=== PATIENT | male | born 1955 | race Caucasian/White ===

== ENCOUNTER 2022-01-28 08:54 | Inpatient (IN) ==
[2022-01-28] MEDS ORDERED: ALBUTEROL 0.083% NEBU SOLN 3 ML VIAL NEB STA ×2 (09:15→11:16)
[2022-01-28] MEDS ORDERED: ALBUT/IPRATROP 3MG/0.5MG NEB 3 ML VIAL NEB ONE (09:15)
[2022-01-28] MEDS ORDERED: methylPREDNISolone 125 MG/2 ML VIAL IV STA (09:15)
--- NOTE | 2022-01-28 09:19 | Emergency Department Note ---
Impression & Plan COPD (chronic obstructive pulmonary disease), Breath shortness ED Provider Note NAME: FRANKY DORSEY AGE: 66 SEX: M : 1955 ARRIVES VIA: Walk-In INFORMANT: Patient ED PROVIDER(S): Nagi Kelly DO CHIEF COMPLAINT: Shortness of breath HPI: Patient is a 66-year-old male with a past medical history of COPD, GERD, dyslipidemia that presents to the ER for shortness of breath which has been worsening for the past 3 weeks. He notes that recently over the past week it has significantly worsened. He does have a cough. He notes he is very rarely bringing up any sputum and if he does he has red flecks in it. Denies any blood thinners. No chest pain. No belly pain. No nausea, vomiting, or diarrhea. No dysuria, urgency, or frequency. No other exacerbating or remitting factors. He notes he can no longer walk as he is so short of breath. On Wednesday he started steroids as well as antibiotics with no improvement. ROS: See above HPI for pertinent positives & negatives. A total of 10 systems reviewed and were otherwise negative. PAST MEDICAL HISTORY:See Below PAST SURGICAL HISTORY:See Below FAMILY HISTORY:See Below SOCIAL HISTORY:See Below HOME MEDICATIONS:See Below ALLERGIES:See Below VITALS:See Below PHYSICAL EXAMINATION: GENERAL: Sitting up in bed, alert, mild distress, dyspneic with conversation EYE EXAM: normal conjunctiva. OROPHARYNX: mucous membranes are moist LUNGS: Diffuse wheezing bilateral. Normal chest wall mechanics HEART: no murmurs, S1 normal and S2 normal ABDOMEN: abdomen soft, non-tender, normo-active bowel sounds, no masses, no rebound or guarding. BACK: Back is symmetrical on inspection and there is no deformity, no midline tenderness, no CVA tenderness. SKIN: no rashes and no bruising UPPER EXTREMITIES: upper extremities are grossly normal. LOWER EXTREMITIES: No pitting edema. Calves are equal bilateral NEURO EXAM: Normal sensorium, cranial nerves II-XII grossly intact, normal speech, no gross weakness of arms, no gross weakness of legs. MEDICAL DECISION MAKING: Patient is a 66-year-old male with past medical history of COPD that presents to the ER for shortness of breath. IV was established blood work was obtained. Labs show no significant leukocytosis or anemia. ABG with a pH 7.42. BMP along with LFTs, bilirubin, and lipase was unremarkable. Troponin was negative. COVID, influenza, and RSV were negative. Chest x-ray without any focal infiltrate. EKG was nondiagnostic. Patient was given hour-long neb treatment and was still dyspneic with conversation but was moving more air and feeling slightly better. He was given additional neb treatment. He was already given steroids and he has been on antibiotics. Discussed with hospitalist for further evaluation. Triage Nursing notes reviewed. Limited review of prior medical records performed Vital Signs: reviewed and remarkable for HTN Differential diagnosis: Differential diagnoses includes but is not limited to pneumonia, bronchitis, COPD/Asthma exacerbation, pneumothorax, pulmonary embolism, congestive heart failure, acute coronary syndrome ER treatment provided: See below Diagnostics interpreted by me: ECG: Atrial paced rate of 68 Normal axis No PVCs QTC 414 Cardiac Monitoring: An order was placed for continuous cardiac monitoring. The monitor shows a rate of 70 with sinus rhythm. Laboratory studies: As stated above and show below. Imaging studies: Portable AP upright 1 view of the chest shows no focal x-ray pneumothorax Consultation(s): Discussed with hospitalist for further evaluation Procedures: none Critical Care: None Past Med/Surg History Medical History Asthma CAD (coronary artery disease) Chronic rhinitis Diverticulosis of colon Dyslipidemia GERD (gastroesophageal reflux disease) Gout HTN (hypertension) Hypersensitivity pneumonitis Myocardial infarction Obstructive sleep apnea Presence of permanent cardiac pacemaker Pulmonary nodules SSS (sick sinus syndrome) Surgical History H/O colonoscopy H/O elbow surgery H/O heart artery stent H/O knee surgery S/P vasectomy Status post cardiac pacemaker procedure Family History Father Lung cancer Diabetes Mother Rheumatoid arthritis Diabetes Social History Smoking Status: Never smoker Hx Alcohol Use: No Hx Substance Use: No Preferred Language: Martiniquais Communication Ability: Effective Yarn Spooler Required: No Beliefs That Will Affect Care: None marital status: Current Living Situation: Spouse Current Living Situation Comment: at home with . current occupational status: retired and disabled Other Information That Helps Us Care for You: No Feels Safe at Home: Yes Safety Concerns: Feels Safe At This Time Assistive Devices: None Allergies Allergies Allergy/AdvReac Type Severity Reaction Status Date / Time Sulfa (Sulfonamide Allergy Unknown Hives Verified 08/23/21 10:17 Antibiotics) bee venom protein (honey bee) Allergy Nausea Verified 08/23/21 10:17 Home Meds Home Medications Medication Instructions Recorded Confirmed allopurinol 300 mg tablet 300 mg PO DAILY 03/17/18 01/28/22 aspirin 81 mg tablet,delayed 81 mg PO DAILY 03/17/18 01/28/22 release atorvastatin 80 mg tablet 80 mg PO HS 03/17/18 01/28/22 cyanocobalamin (vitamin B-12) 1,000 mcg PO DAILY 03/17/18 01/28/22 1,000 mcg tablet (Vitamin B-12) epinephrine 0.3 mg/0.3 mL 0.3 mg IM DIRECTED PRN unknown 03/17/18 01/28/22 injection, auto-injector lisinopril 5 mg tablet 5 mg PO DAILY 03/17/18 01/28/22 nitroglycerin 0.4 mg sublingual 0.4 mg sublingual DIRECTED PRN 03/17/18 01/28/22 tablet (Nitrostat) Chest Pain ezetimibe 10 mg tablet (Zetia) 10 mg PO DAILY 03/20/20 01/28/22 famotidine 20 mg tablet 20 mg HS 03/20/20 01/28/22 ipratropium bromide 17 2 puff inhalation .BID PRN 07/28/21 01/28/22 mcg/actuation HFA aerosol inhaler Shortness Of Breath (Atrovent HFA) loratadine 10 mg tablet 10 mg PO DAILY 01/28/22 01/28/22 pantoprazole 20 mg tablet,delayed 20 mg PO DAILY 01/28/22 01/28/22 release prednisone 10 mg tablet 10 mg PO UD PRN rescue kit 01/28/22 01/28/22 Previous Rx's Medication Instructions Recorded albuterol sulfate 1.25 mg/3 mL 1.25 mg (3 mL) inhalation QID PRN 05/01/21 solution for nebulization shortness of breath or wheezing #90 mL albuterol sulfate 90 mcg/actuation 2 puff inhalation .COMPLEX PRN 05/01/21 aerosol inhaler (Ventolin HFA) Shortness Of Breath #8.5 grams fluticasone 250 mcg-salmeterol 50 1 inh inhalation BID #3 Inhalers 07/28/21 mcg/dose blistr powdr for inhalation (Advair Diskus) cefuroxime axetil 500 mg tablet 500 mg PO BID PRN Shortness Of 01/22/22 Breath #20 tabs Results & Data (ED) Vital Signs Vital Signs - 24 hr 01/28/22 09:06 01/28/22 09:30 01/28/22 09:35 Temperature 36.3 C L Temperature Source Temporal Artery Scan Pulse Rate 80 Pulse Rate [Apical] 67 Pulse Rate from SpO2 Sensor Pulse Rhythm Regular Pulse Strength Normal Respiratory Rate 20 18 Respiratory Effort / Characteristics Non-Labored Spontaneous Non-Labored Spontaneous Respiratory Depth Normal Respiratory Pattern Regular Blood Pressure 149/83 H Blood Pressure Mean 105 Blood Pressure Position Sitting Pulse Oximetry 93 94 Oxygen Delivery Method Room Air Room Air Room Air Sepsis Recent Fever Within 48 Hours No Sepsis New/Unexplained Change in Mental Status No Sepsis Action Taken by Nursing No Action Required 01/28/22 09:29 01/28/22 09:30 01/28/22 09:31 Temperature Temperature Source Pulse Rate 67 70 66 Pulse Rate [Apical] Pulse Rate from SpO2 Sensor 66 69 67 Pulse Rhythm Pulse Strength Respiratory Rate 18 20 17 Respiratory Effort / Characteristics Respiratory Depth Respiratory Pattern Blood Pressure Blood Pressure Mean Blood Pressure Position Pulse Oximetry 95 95 94 Oxygen Delivery Method Sepsis Recent Fever Within 48 Hours Sepsis New/Unexplained Change in Mental Status Sepsis Action Taken by Nursing 01/28/22 09:31 01/28/22 10:00 01/28/22 10:00 Temperature Temperature Source Pulse Rate 65 Pulse Rate [Apical] Pulse Rate from SpO2 Sensor 66 Pulse Rhythm Pulse Strength Respiratory Rate Respiratory Effort / Characteristics Respiratory Depth Respiratory Pattern Blood Pressure 159/90 H 134/78 Blood Pressure Mean 113 96 Blood Pressure Position Pulse Oximetry 99 Oxygen Delivery Method Sepsis Recent Fever Within 48 Hours Sepsis New/Unexplained Change in Mental Status Sepsis Action Taken by Nursing 01/28/22 10:30 01/28/22 10:30 01/28/22 11:31 Temperature Temperature Source Pulse Rate 68 Pulse Rate [Apical] 65 Pulse Rate from SpO2 Sensor 68 Pulse Rhythm Pulse Strength Respiratory Rate 15 20 Respiratory Effort / Characteristics Respiratory Depth Respiratory Pattern Blood Pressure 148/75 H Blood Pressure Mean 99 Blood Pressure Position Pulse Oximetry 100 92 Oxygen Delivery Method Room Air Sepsis Recent Fever Within 48 Hours Sepsis New/Unexplained Change in Mental Status Sepsis Action Taken by Nursing 01/28/22 11:00 01/28/22 11:30 Temperature Temperature Source Pulse Rate 65 67 Pulse Rate [Apical] Pulse Rate from SpO2 Sensor 67 65 Pulse Rhythm Pulse Strength Respiratory Rate 16 19 Respiratory Effort / Characteristics Respiratory Depth Respiratory Pattern Blood Pressure 148/74 H 122/76 Blood Pressure Mean 98 91 Blood Pressure Position Pulse Oximetry 94 93 Oxygen Delivery Method Room Air Room Air Sepsis Recent Fever Within 48 Hours Sepsis New/Unexplained Change in Mental Status Sepsis Action Taken by Nursing Laboratory Data Result diagrams: 01/28/22 09:25 01/28/22 09:25 Lab Results 01/28/22 01/28/22 01/28/22 Range/Units 09:25 09:25 09:25 WBC 8.69 (4.8-10.8) K/ul RBC 4.39 L (4.63-6.08) M/uL Hgb 14.1 (14.0-18.0) g/dl Hct 41.4 (40.1-51.0) % MCV 94.3 (80.0-100.0) fL MCH 32.1 (25.0-34.0) pg MCHC 34.1 (32.0-36.0) g/dL RDW Std Deviation 47.5 H (36.4-46.3) fL RDW Coeff of Bette 13.9 (11.5-14.5) % Plt Count 133 (130-400) K/uL MPV 10.2 (9.4-12.4) fL Immature Gran % (Auto) 0.3 % Neut % (Auto) 60.6 % Lymph % (Auto) 22.1 % [place] % (Auto) 5.6 % Eos % (Auto) 9.9 % Baso % (Auto) 1.5 % Neut # (Auto) 5.26 (1.4-6.5) K/uL Lymph # (Auto) 1.92 (1.2-3.4) K/uL [place] # (Auto) 0.49 (0.24-0.82) K/uL Eos # (Auto) 0.86 H (0-0.50) K/uL Baso # (Auto) 0.13 (0-0.2) K/uL Immature Gran # (Auto) 0.03 H (0.00-0.02) K/uL D-Dimer 200 (0-500) ug/L FEU VBG pH (7.36-7.41) VBG pCO2 (38-50) mmHg VBG pO2 mmHg VBG HCO3 mmol/L VBG O2 Saturation % VBG Base Excess mEq/L Sodium 140 (136-145) mmol/L Potassium 4.0 (3.5-5.1) mmol/L Chloride 106 (98-107) mmol/L Carbon Dioxide 26 (21-32) mmol/L Anion Gap 8 (3-11) BUN 11 (6-23) mg/dl Creatinine 0.92 (0.6-1.4) mg/dl Est Cr Clr Drug Dosing 99.9 ml/min Est GFR ( Amer) 100.1 ml/min Est GFR (Non-Af Amer) 86.4 ml/min BUN/Creatinine Ratio 12.0 (10-20) Glucose 135 H (70-99(Fasting)) mg/dl Calcium 8.9 (8.5-10.1) mg/dl Total Bilirubin 0.7 (0.2-1.0) mg/dl AST 21 (13-39) U/L ALT 23 (7-52) U/L Alkaline Phosphatase 99 (34-104) U/L Troponin I High Sens 4.0 (0-20) pg/ml Total Protein 6.8 (6.0-8.3) gm/dl Albumin 4.0 (3.4-5.0) gm/dl Globulin 2.8 (2.5-4.0) gm/dl Albumin/Globulin Ratio 1.4 (0.9-2) Lipase 19 (11-82) U/L SARS-CoV-2 (PCR) (Negative) Influenza Type A (PCR) (Neg) Influenza Type B (PCR) (Neg) RSV (RT-PCR) (Neg) 01/28/22 01/28/22 Range/Units 09:25 09:30 WBC (4.8-10.8) K/ul RBC (4.63-6.08) M/uL Hgb (14.0-18.0) g/dl Hct (40.1-51.0) % MCV (80.0-100.0) fL MCH (25.0-34.0) pg MCHC (32.0-36.0) g/dL RDW Std Deviation (36.4-46.3) fL RDW Coeff of Bette (11.5-14.5) % Plt Count (130-400) K/uL MPV (9.4-12.4) fL Immature Gran % (Auto) % Neut % (Auto) % Lymph % (Auto) % [place] % (Auto) % Eos % (Auto) % Baso % (Auto) % Neut # (Auto) (1.4-6.5) K/uL Lymph # (Auto) (1.2-3.4) K/uL [place] # (Auto) (0.24-0.82) K/uL Eos # (Auto) (0-0.50) K/uL Baso # (Auto) (0-0.2) K/uL Immature Gran # (Auto) (0.00-0.02) K/uL D-Dimer (0-500) ug/L FEU VBG pH 7.42 H (7.36-7.41) VBG pCO2 41 (38-50) mmHg VBG pO2 65 mmHg VBG HCO3 27 mmol/L VBG O2 Saturation 94.1 % VBG Base Excess 1.9 mEq/L Sodium (136-145) mmol/L Potassium (3.5-5.1) mmol/L Chloride (98-107) mmol/L Carbon Dioxide (21-32) mmol/L Anion Gap (3-11) BUN (6-23) mg/dl Creatinine (0.6-1.4) mg/dl Est Cr Clr Drug Dosing ml/min Est GFR ( Amer) ml/min Est GFR (Non-Af Amer) ml/min BUN/Creatinine Ratio (10-20) Glucose (70-99(Fasting)) mg/dl Calcium (8.5-10.1) mg/dl Total Bilirubin (0.2-1.0) mg/dl AST (13-39) U/L ALT (7-52) U/L Alkaline Phosphatase (34-104) U/L Troponin I High Sens (0-20) pg/ml Total Protein (6.0-8.3) gm/dl Albumin (3.4-5.0) gm/dl Globulin (2.5-4.0) gm/dl Albumin/Globulin Ratio (0.9-2) Lipase (11-82) U/L SARS-CoV-2 (PCR) NEGATIVE (Negative) Influenza Type A (PCR) Negative (Neg) Influenza Type B (PCR) Negative (Neg) RSV (RT-PCR) Negative (Neg) Administered Medications Discontinued Medications Albuterol (Albut/Ipratrop 3mg/0.5mg Neb 3 Ml Vial) 12 ml NEB ONE ONE; Protocol Stop: 01/28/22 09:16 Last Admin: 01/28/22 09:35 Dose: 12 ml Documented By: DILAN Albuterol (Albuterol 0.083% Nebu Soln 3 Ml Vial) 2.5 mg NEB NOW STA; Protocol Stop: 01/28/22 09:16 Last Admin: 01/28/22 14:46 Dose: Not Given Documented By: DILAN Albuterol (Albuterol 0.083% Nebu Soln 3 Ml Vial) 10 mg NEB NOW STA; Protocol Stop: 01/28/22 11:17 Last Admin: 01/28/22 11:30 Dose: 10 mg Documented By: DILAN Doxycycline Hyclate (Doxycycline Hyclate 100 Mg Cap) 100 mg PO NOW STA Stop: 01/28/22 12:13 Last Admin: 01/28/22 12:45 Dose: 100 mg Documented By: SONDRA Methylprednisolone (Methylprednisolone 125 Mg/2 Ml Vial) 60 mg IV NOW STA Stop: 01/28/22 09:16 Last Admin: 01/28/22 09:28 Dose: 60 mg Documented By: SONDRA Imaging Data Radiologist's Impression: Chest X-Ray 01/28/22 09:15 XR chest 1V portable HISTORY: Atypical Chest Pain COMPARISON: Chest 03/20/2020. FINDINGS: No pneumothorax. No pleural effusions. The cardiac silhouette remains mildly enlarged. There is left-sided dual-chamber pacemaker. There is mild central pulmonary vascular congestion without overt edema. No new focal lung consolidations identified to suggest pneumonia. IMPRESSION: Mild cardiomegaly with mild central pulmonary vascular congestion without overt edema. ACT 112: Negative or not required by law. Electronically signed by: Franky Rodgers M.D. 01/28/2022 9:29 AM Discharge Plan Visit Data Chief Complaint: Illness Stated Complaint: COUGHING, WEEZING, CANT BREATHE ED Provider: Nagi Kelly Discharge Problem: COPD (chronic obstructive pulmonary disease), Breath shortness Patient Disposition: Admitted As Inpatient Discharge Instructions Interventions: ED Discharge Assessment Last Done: 01/28/22 13:40
--- NOTE | 2022-01-28 09:30 | XRay Report ---
XR chest 1V portable HISTORY: Atypical Chest Pain COMPARISON: Chest 03/20/2020. FINDINGS: No pneumothorax. No pleural effusions. The cardiac silhouette remains mildly enlarged. Ther e is left-sided dual-chamber pacemaker. There is mild central pulmonary vascular congestion without o vert edema. No new focal lung consolidations identified to suggest pneumonia. IMPRESSION: Mild cardiomegaly with mild central pulmonary vascular congestion without overt edema. ACT 112: Negative or not required by law. Electronically signed by: Franky Rodgers M.D. 01/28/2022 9:29 AM
[2022-01-28 09:44] LABS: Base Excess VBG 1.9 mEq/L; HCO3 VBG 27 mmol/L; Oxygen Saturation VBG 94.1 %; PCO2 VBG 41 mmHg (38-50); PO2 VBG 65 mmHg; pH VBG 7.42 (7.36-7.41)
[2022-01-28 09:52] LABS: Hematocrit (blood only) 41.4 % (40.1-51.0); Hemoglobin 14.1 g/dl (14.0-18.0); Mean Corpuscular Hemoglobin 32.1 pg (25.0-34.0); Mean Corpuscular Hgb Conc 34.1 g/dL (32.0-36.0); Mean Corpuscular Volume 94.3 fL (80.0-100.0); Mean Platelet Volume 10.2 fL (9.4-12.4); Platelet Count 133 K/uL (130-400); RDW Coefficient of Variation 13.9 % (11.5-14.5); RDW Standard Deviation 47.5 fL (36.4-46.3); Red Blood Count 4.39 M/uL (4.63-6.08); White Blood Count 8.69 K/ul (4.8-10.8)
[2022-01-28 10:02] LABS: Basophils # (auto) 0.13 K/uL (0-0.2); Basophils % (auto) 1.5 %; Eosinophils # (auto) 0.86 K/uL (0-0.50); Eosinophils % (auto) 9.9 %; Immature Granulocytes # (auto) 0.03 K/uL (0.00-0.02); Immature Granulocytes % (auto) 0.3 %; Lymphocytes # (auto) 1.92 K/uL (1.2-3.4); Lymphocytes % (auto) 22.1 %; Monocytes # (auto) 0.49 K/uL (0.24-0.82); Monocytes % (auto) 5.6 %; Neutrophils # (auto) 5.26 K/uL (1.4-6.5); Neutrophils % (auto) 60.6 %
[2022-01-28 10:18] LABS: Albumin Globulin Ratio 1.4 (0.9-2); Bilirubin,Total 0.7 mg/dl (0.2-1.0); Calcium 8.9 mg/dl (8.5-10.1); Creatinine Clr Calc Pharmacy 99.9 ml/min; Est GFR (African American) 100.1 ml/min; Est GFR (Non-African American) 86.4 ml/min; Globulin 2.8 gm/dl (2.5-4.0); Total Protein 6.8 gm/dl (6.0-8.3)
[2022-01-28 10:19] LABS: D Dimer 200 ug/L FEU (0-500)
[2022-01-28 10:48] LABS: Influenza A virus by PCR Negative (Neg); Influenza B virus by PCR Negative (Neg); RSV by PCR Negative (Neg); SARS CoV2 RNA(COVID-19) InHosp NEGATIVE (Negative)
--- NOTE | 2022-01-28 11:40 | History & Physical Report ---
Date of Service January 28, 2022 Assessment & Plan (1) Asthma with acute exacerbation: (2) Hypersensitivity pneumonitis: (3) CAD (coronary artery disease): (4) HTN (hypertension): (5) Morbid obesity: (6) Presence of permanent cardiac pacemaker: (7) Obstructive sleep apnea: (8) Restrictive lung disease: Plan This is a 66-year-old male who has a significant past medical history of CAD with history of anterior [place] and LAD stent placement in 2018, SSS status post PPM, HTN, HLD, hypersensitivity pneumonitis, chronic cough, moderate asthma, restrictive lung disease in the setting of morbid obesity and PRECIOUS, gout and chronic rhinitis who presents to ED secondary to shortness of breath /cough x3 weeks. Moderate persistent asthma with Asthma Exacerbation Hypersensitivity Pneumonitis Restrictive lung disease Admit to telemetry aggressive pulmonary toilet with Duonebs, flutter valve, incentive spirometry IV solumedrol 40mg BID, titrate down as able Doxycycline 100g BID muccinex, Delsym Pt follows Dr. Flores, allergy/immunology, previously followed [facility] but last seen 2013 will hold oral lisinopril for now, in favor of low dose losartan given chronic cough supplemental O2 as needed, currently on room air CAD SSS s/p PPM HTN continue asa, statin, zetia will hold oral lisinopril for now, in favor of low dose losartan given chronic cough PRECIOUS not on CPAP Morbid obesity, BMI 38.2 encourage lifestyle modifications DVT ppx: SQ Lovenox Dispo: tele under obs, d/c to home when medically able FULL CODE PCP: [facility]forward Pt was seen and examined in collaboration with Dr. Hanson, please see addendum History of Present Illness Chief Complaint: Cough and SOB x3 weeks. Primary Care Provider: Renetta Morales, This is a 66-year-old male who has a significant past medical history of CAD with history of anterior [place] and LAD stent placement in 2018, SSS status post PPM, HTN, HLD, hypersensitivity pneumonitis, chronic cough, moderate asthma, restrictive lung disease in the setting of morbid obesity and PRECIOUS, gout and chronic rhinitis who presents to ED secondary to shortness of breath /cough x3 weeks. He states approx 3 weeks ago he developed a cough. The cough has been persistently getting worse as well as SOB. He has been using his home nebulizer w/o relief. He also started a rescue kit approx 1 week ago with cefuroxime and prednisone. He believes this flare may be due to pollen and heat. He states many yrs ago he was dx with hypersensitivity pneumonitis due to pigeon droppings in work place. He was dx by allergy/immunology Dr. Flores. He feels like his oral steroids/antibiotic are not helping. His cough is dry. Occasionally coughs up red mucus. He has tried hot showers w/o relief. He complains of sweats at night but no documented fevers. He denies chills, dizziness, lightheaded, chest pain, n/v/d, change in bowel or urinary habits. His sx feel worse in the morning. Also if he is resting he feels okay, but as soon as he starts moving around he feels SOB. SOB most with exertion. No known sick contacts. Of significance patient remained hemodynamically stable in ED. He was not hypoxic but oxygen saturations were in the low 90s at approximately 92%. His CBC and CMP was generally unremarkable. D-dimer was negative and VBG with mild elevation in pH at 7.42. His SARS-CoV-2 and influenza panel was negative. Chest x-ray revealed mild cardiomegaly without overt edema. Mild central pulmonary vascular congestion noted. He denies smoking and only uses occasional alcohol. Allergies Allergy/AdvReac Type Severity Reaction Status Date / Time Sulfa (Sulfonamide Allergy Unknown Hives Verified 08/23/21 10:17 Antibiotics) bee venom protein (honey bee) Allergy Nausea Verified 08/23/21 10:17 Home Medications Medication Instructions Recorded Confirmed Type allopurinol 300 mg tablet 300 mg PO DAILY 03/17/18 01/28/22 History aspirin 81 mg tablet,delayed 81 mg PO DAILY 03/17/18 01/28/22 History release atorvastatin 80 mg tablet 80 mg PO HS 03/17/18 01/28/22 History cyanocobalamin (vitamin B-12) 1,000 mcg PO DAILY 03/17/18 01/28/22 History 1,000 mcg tablet (Vitamin B-12) epinephrine 0.3 mg/0.3 mL 0.3 mg IM DIRECTED PRN unknown 03/17/18 01/28/22 History injection, auto-injector lisinopril 5 mg tablet 5 mg PO DAILY 03/17/18 01/28/22 History nitroglycerin 0.4 mg sublingual 0.4 mg sublingual DIRECTED PRN 03/17/18 01/28/22 History tablet (Nitrostat) Chest Pain ezetimibe 10 mg tablet (Zetia) 10 mg PO DAILY 03/20/20 01/28/22 History famotidine 20 mg tablet 20 mg HS 03/20/20 01/28/22 History albuterol sulfate 1.25 mg/3 mL 1.25 mg (3 mL) inhalation QID PRN 05/01/21 01/28/22 Rx solution for nebulization shortness of breath or wheezing #90 mL albuterol sulfate 90 mcg/actuation 2 puff inhalation .COMPLEX PRN 05/01/21 01/28/22 Rx aerosol inhaler (Ventolin HFA) Shortness Of Breath #8.5 grams fluticasone 250 mcg-salmeterol 50 1 inh inhalation BID #3 Inhalers 07/28/21 01/28/22 Rx mcg/dose blistr powdr for inhalation (Advair Diskus) ipratropium bromide 17 2 puff inhalation .BID PRN 07/28/21 01/28/22 History mcg/actuation HFA aerosol inhaler Shortness Of Breath (Atrovent HFA) cefuroxime axetil 500 mg tablet 500 mg PO BID PRN Shortness Of 01/22/22 01/28/22 Rx Breath #20 tabs loratadine 10 mg tablet 10 mg PO DAILY 01/28/22 01/28/22 History pantoprazole 20 mg tablet,delayed 20 mg PO DAILY 01/28/22 01/28/22 History release prednisone 10 mg tablet 10 mg PO UD PRN rescue kit 01/28/22 01/28/22 History Past Med/Surg History Medical History Asthma CAD (coronary artery disease) Chronic rhinitis Diverticulosis of colon Dyslipidemia GERD (gastroesophageal reflux disease) Gout HTN (hypertension) Hypersensitivity pneumonitis Myocardial infarction Obstructive sleep apnea Presence of permanent cardiac pacemaker Pulmonary nodules SSS (sick sinus syndrome) Surgical History H/O colonoscopy H/O elbow surgery H/O heart artery stent H/O knee surgery S/P vasectomy Status post cardiac pacemaker procedure Family History Father Lung cancer Diabetes Mother Rheumatoid arthritis Diabetes Social History Smoking Status: Never smoker Hx Alcohol Use: Yes Alcohol type: beer Alcohol Intake Frequency: Monthly or Less Hx Substance Use: No Preferred Language: Mongolian Communication Ability: Effective Customs And Border Protection Inspector Required: No Beliefs That Will Affect Care: None marital status: Current Living Situation: Spouse current occupational status: retired and disabled Feels Safe at Home: Yes Assistive Devices: Hearing Aid - Bilateral Review of Systems Review of Systems: All systems reviewed & are unremarkable except as noted in HPI & below Physical Exam Physical Exam: Please refer to Dr. Hanson addendum for physical exam findings. Results & Data Results & Data ([facility]) Vital Signs (Past 12 Hours) Vital Signs Temp Pulse Pulse Resp BP Pulse Ox O2 Del Method 01/28/22 11:31 65 20 92 Room Air 01/28/22 10:30 68 15 100 01/28/22 10:30 148/75 H 01/28/22 10:00 65 99 01/28/22 10:00 134/78 01/28/22 09:31 159/90 H 01/28/22 09:31 66 17 94 01/28/22 09:30 70 20 95 01/28/22 09:29 67 18 95 01/28/22 09:35 67 18 Room Air 01/28/22 09:30 94 Room Air 01/28/22 09:06 36.3 C L 80 20 149/83 H 93 Room Air Diagnostic Findings Chest X-Ray 01/28/22 09:15 XR chest 1V portable HISTORY: Atypical Chest Pain COMPARISON: Chest 03/20/2020. FINDINGS: No pneumothorax. No pleural effusions. The cardiac silhouette remains mildly enlarged. There is left-sided dual-chamber pacemaker. There is mild central pulmonary vascular congestion without overt edema. No new focal lung consolidations identified to suggest pneumonia. IMPRESSION: Mild cardiomegaly with mild central pulmonary vascular congestion without overt edema. ACT 112: Negative or not required by law. Electronically signed by: Franky Rodgers M.D. 01/28/2022 9:29 AM Medications Administered Medication List Discontinued Medications Albuterol (Albut/Ipratrop 3mg/0.5mg Neb 3 Ml Vial) 12 ml NEB ONE ONE; Protocol Stop: 01/28/22 09:16 Last Admin: 01/28/22 09:35 Dose: 12 ml Documented By: DILAN Albuterol (Albuterol 0.083% Nebu Soln 3 Ml Vial) 10 mg NEB NOW STA; Protocol Stop: 01/28/22 11:17 Last Admin: 01/28/22 11:30 Dose: 10 mg Documented By: DILAN Methylprednisolone (Methylprednisolone 125 Mg/2 Ml Vial) 60 mg IV NOW STA Stop: 01/28/22 09:16 Last Admin: 01/28/22 09:28 Dose: 60 mg Documented By: SONDRA ECG Rate (beats per minute): 68 Rhythm: other (atrial paced) Findings: + PAC and + paced rhythm COVID-19 Results Results COVID-19 Adm Lab Results: RBC 4.39 M/uL (4.63-6.08) L 01/28/22 WBC 8.69 K/ul (4.8-10.8) 01/28/22 Hgb 14.1 g/dl (14.0-18.0) 01/28/22 Hct 41.4 % (40.1-51.0) 01/28/22 Plt Count 133 K/uL (130-400) 01/28/22 Neutrophils (%) (Auto) 60.6 % 01/28/22 Lymphocytes (%) (Auto) 22.1 % 01/28/22 Monocytes # (Auto) 0.49 K/uL (0.24-0.82) 01/28/22 Eosinophils # (Auto) 0.86 K/uL (0-0.50) H 01/28/22 Immature Granulocyte % (Auto) 0.3 % 01/28/22 Neutrophils # (Auto) 5.26 K/uL (1.4-6.5) 01/28/22 Lymphocytes # (Auto) 1.92 K/uL (1.2-3.4) 01/28/22 Monocytes # (Auto) 0.49 K/uL (0.24-0.82) 01/28/22 Eosinophils # (Auto) 0.86 K/uL (0-0.50) H 01/28/22 Basophils # (Auto) 0.13 K/uL (0-0.2) 01/28/22 Immature Granulocyte # (Auto) 0.03 K/uL (0.00-0.02) H 01/28 Na 140 mmol/L (136-145) 01/28/22 K 4.0 mmol/L (3.5-5.1) 01/28/22 Cl 106 mmol/L (98-107) 01/28/22 CO2 26 mmol/L (21-32) 01/28/22 Anion Gap 8 (3-11) 01/28/22 BUN 11 mg/dl (6-23) 01/28/22 Creatinine 0.92 mg/dl (0.6-1.4) 01/28/22 BUN/Creatinine Ratio 12.0 (10-20) 01/28/22 Glucose Level 135 mg/dl (70-99(Fasting)) H 01/28/22 Ca 8.9 mg/dl (8.5-10.1) 01/28/22 Total Bilirubin 0.7 mg/dl (0.2-1.0) 01/28/22 AST/SGOT 21 U/L (13-39) 01/28/22 ALT/SGPT 23 U/L (7-52) 01/28/22 Alkaline Phosphatase 99 U/L (34-104) 01/28/22 Total Protein 6.8 gm/dl (6.0-8.3) 01/28/22 Albumin 4.0 gm/dl (3.4-5.0) 01/28/22 Globulin 2.8 gm/dl (2.5-4.0) 01/28/22 Albumin/Globulin Ratio 1.4 (0.9-2) 01/28/22 D-Dimer 200 ug/L FEU (0-500) 01/28/22 COVID-19 PCR NEGATIVE (Negative) 01/28/22 Influenza Virus Type A (PCR) Negative (Neg) 01/28/22 Influenza Virus Type B (PCR) Negative (Neg) 01/28/22 Chest X-Ray 01/28/22 Code Status & VTE Plan Code Status FULL CODE VTE Prophylaxis Plan VTE Prophylaxis will be ordered: Yes Supervising Physician Co-Signing Physician Notes Patient is a 66-year-old male with history of coronary artery disease, SSS, asthma, restrictive lung disease, hypersensitive pneumonitis and other comorbidities presents with history of worsening cough, shortness of breath since 3 weeks duration. Patient was started on cefuroxime, Medrol Dosepak as outpatient and he has been using his rescue inhaler since about 1 week. He denies any chest pain, fever, chills, nausea, vomiting, abdominal pain. 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 He is vaccinated for COVID and currently negative for influenza, RSV, COVID. Please review HPI for complete details of presentation. Blood work is fairly within normal limits. D-dimer is negative. Glucose 135. Chest x-ray showed findings suggestive of mild cardiomegaly with mild central pulmonary congestion without overt edema. EKG showed atrial paced rhythm with prolonged AV conduction with premature atrial complexes. QTc 414. Physical Exam: Vitals signs as noted above General Appearance:Obese, no apparent distress Head: normocephalic, Atraumatic Eyes: normal inspection, EOMI Neck: supple, Trachea midline Respiratory/Chest: Decreased breath sounds, Expiratory wheezes/Rhonchi, No accessory muscle use Cardiovascular: S1, S2, No murmur, + Pacer on L side Abdomen/GI:Soft, Non tender, Bowel sounds present Extremities/Musculoskeletal:normal inspection, no edema Neurologic/Psych:AAOX3, grossly no focal neurological deficits, Normal Mood Skin: normal color, warm Asthma exacerbation Hypersensitivity pneumonitis Restrictive lung disease secondary to obesity Clinically does not look volume overloaded Negative D-dimer Agree with glucocorticoids, Nebs Antitussives as needed Will empirically cover with doxycycline Continue home antihistamines, home inhalers Change lisinopril to losartan likely contributing to the cough as well Supplemental oxygen as needed Elevated glucose likely secondary to steroids I personally reviewed the record. Patient is interviewed and examined at bedside. Patient's care is coordinated with Jessica Carranza PA-C. Please refer to the documentation above for details of patient's presentation and for discussion of other issues.
[2022-01-28] MEDS ORDERED: DOXYCYCLINE HYCLATE 100 MG CAP PO STA (12:12)
--- NOTE | 2022-01-28 12:38 | Electrocardiogram Report ---
Test Reason : Blood Pressure : / mmHG Vent. Rate : 068 BPM Atrial Rate : 068 BPM P-R Int : 216 ms QRS Dur : 072 ms QT Int : 390 ms P-R-T Axes : -02 014 058 degrees QTc Int : 414 ms Atrial-paced rhythm with prolonged AV conduction with Premature atrial complexes Poor R wave progression, consider anterior OR vs. lead placement vs. LVH Abnormal ECG When compared with ECG of 20-MAR-2020 12:31, Premature atrial complexes are now Present Confirmed by Neel Smith ([id number]) on 01/28/2022 12:38:23 PM Referred By: Confirmed By:Neel Smith
[2022-01-28] MEDS ORDERED: POLYETHYLENE (MIRALAX) 17 GM PACK PO PRN (14:37)
[2022-01-28] MEDS ORDERED: MAGNESIUM HYDROXIDE SUSP 30 ML UDC PO PRN (14:37)
[2022-01-28] MEDS ORDERED: ONDANSETRON INJ 2 MG/ML 2 ML VIAL IV PRN (14:37)
[2022-01-28] MEDS ORDERED: ALUMINUM/MAGNESIUM SUSP 30 ML UDC PO PRN (14:37)
[2022-01-28] MEDS ORDERED: DEXTROMETHORPHAN POLYMR COMPLX 60 MG/10 ML UDP PO PRN (14:37)
[2022-01-28] MEDS ORDERED: ACETAMINOPHEN 325 MG TAB PO PRN (14:37)
[2022-01-28] MEDS ORDERED: ALBUT/IPRATROP 3MG/0.5MG NEB 3 ML VIAL NEB PRN (14:58)
[2022-01-28] MEDS: ALBUT/IPRATROP 3MG/0.5MG NEB 3 ML VIAL NEB SCH ×2 (15:03→20:07)
[2022-01-28] MEDS: ATORVASTATIN 40 MG TAB PO SCH (20:46)
[2022-01-28] MEDS: DOXYCYCLINE HYCLATE 100 MG CAP PO SCH (20:47)
[2022-01-28] MEDS: ENOXAPARIN INJ 40 MG/0.4 ML SYR SQ SCH (20:48)
[2022-01-28] MEDS: FAMOTIDINE 20 MG TAB PO SCH (20:48)
[2022-01-28] MEDS: methylPREDNISolone 40 MG in SYRINGE 0 ML IV SCH (20:49)
[2022-01-28] MEDS ORDERED: FLUTICASONE/VILANTEROL 200/25MCG 14 PUFFS/INHALER INH SCH (21:00)
[2022-01-29] MEDS: ALBUT/IPRATROP 3MG/0.5MG NEB 3 ML VIAL NEB SCH ×4 (07:07→19:23)
[2022-01-29] MEDS: CYANOCOBALAMIN (B-12) 500 MCG TABLET PO SCH (08:07)
[2022-01-29] MEDS: ASPIRIN 81 MG ECTAB PO SCH (08:07)
[2022-01-29] MEDS: EZETIMIBE 10 MG TABLET PO SCH (08:07)
[2022-01-29] MEDS: DOXYCYCLINE HYCLATE 100 MG CAP PO SCH ×2 (08:08→20:08)
[2022-01-29] MEDS: PANTOprazole 40 MG TAB PO SCH (08:08)
[2022-01-29] MEDS: LORATADINE 10 MG TAB PO SCH (08:08)
[2022-01-29] MEDS: ENOXAPARIN INJ 40 MG/0.4 ML SYR SQ SCH ×2 (08:08→20:09)
[2022-01-29] MEDS: allopurinoL 300 MG TAB PO SCH (08:08)
[2022-01-29] MEDS: methylPREDNISolone 40 MG in SYRINGE 0 ML IV SCH ×2 (08:09→20:10)
[2022-01-29] MEDS ORDERED: LOSARTAN POTASSIUM 25 MG TAB PO SCH (09:00)
[2022-01-29 09:09] LABS: Hematocrit (blood only) 41.1 % (40.1-51.0); Hemoglobin 14.1 g/dl (14.0-18.0); Mean Corpuscular Hemoglobin 32.1 pg (25.0-34.0); Mean Corpuscular Hgb Conc 34.3 g/dL (32.0-36.0); Mean Corpuscular Volume 93.6 fL (80.0-100.0); Mean Platelet Volume 10.4 fL (9.4-12.4); Platelet Count 139 K/uL (130-400); RDW Coefficient of Variation 14.1 % (11.5-14.5); RDW Standard Deviation 47.7 fL (36.4-46.3); Red Blood Count 4.39 M/uL (4.63-6.08); White Blood Count 25.09 K/ul (4.8-10.8)
[2022-01-29 09:20] LABS: Calcium 9.3 mg/dl (8.5-10.1); Creatinine Clr Calc Pharmacy 74.7 ml/min; Est GFR (African American) 69.8 ml/min; Est GFR (Non-African American) 60.2 ml/min; Magnesium 1.7 mg/dl (1.7-2.4); Potassium 4.8 mmol/L (3.5-5.1)
[2022-01-29 09:27] LABS: Basophils # (auto) 0.04 K/uL (0-0.2); Basophils % (auto) 0.2 %; Immature Granulocytes # (auto) 0.15 K/uL (0.00-0.02); Immature Granulocytes % (auto) 0.6 %; Lymphocytes # (auto) 1.62 K/uL (1.2-3.4); Lymphocytes % (auto) 6.5 %; Neutrophils # (auto) 22.78 K/uL (1.4-6.5); Neutrophils % (auto) 90.7 %
[2022-01-29 10:13] LABS: Estimated Average Glucose 131 mg/dl; Hemoglobin A1C 6.2 % (4.5-5.6)
[2022-01-29] MEDS ORDERED: FUROSEMIDE INJ 20 MG/2 ML VIAL IV ONE (10:30)
[2022-01-29] MEDS: guaiFENesin/DEXTROM SYRUP 100MG/10MG 5ML UDC PO SCH ×3 (11:10→23:00)
[2022-01-29] MEDS: FLUTICASONE PROPIONATE NA SPR 16 GM BTL SCH (11:10)
--- NOTE | 2022-01-29 15:54 | Hospitalist Progress Note ---
Date of Service January 29, 2022 Assessment & Plan (1) Asthma with acute exacerbation: (2) Hypersensitivity pneumonitis: (3) CAD (coronary artery disease): (4) HTN (hypertension): (5) Morbid obesity: (6) Presence of permanent cardiac pacemaker: (7) Obstructive sleep apnea: (8) Restrictive lung disease: Plan This is a 66-year-old male who has a significant past medical history of CAD with history of anterior [place] and LAD stent placement in 2018, SSS status post PPM, HTN, HLD, hypersensitivity pneumonitis, chronic cough, moderate asthma, restrictive lung disease in the setting of morbid obesity and PRECIOUS, gout and chronic rhinitis who presents to ED secondary to shortness of breath /cough x3 weeks. Moderate persistent asthma with Asthma Exacerbation Hypersensitivity Pneumonitis Restrictive lung disease Persistent cough for the last 3 weeks mostly in the morning after waking up. Is already on Flonase, antihistamines and Pepcid. WBC elevated to 25; likely related to steroid and stress. Chest x-ray shows bilateral congestion. Plan; Will obtain echo given his chest x-ray findings and lung examination. Trial of Lasix 20 mg IV. - Started on dextromethorphan syrup for cough suppression. -Continue on IV methylprednisolone, duo nebs, loratadine and Flonase. CAD SSS s/p PPM HTN continue asa, statin, zetia will hold oral lisinopril for now, in favor of low dose losartan given chronic cough. He is creatinine up trended today; will hold off on losartan tomorrow. PRECIOUS not on CPAP Morbid obesity, BMI 38.2 encourage lifestyle modifications DVT ppx: SQ Lovenox Dispo: tele under obs, d/c to home when medically able FULL CODE PCP: [facility]forward Admission and Anticipated Discharge Date Admission Date: January 28, 2022 Subjective Patient complains of continued coughing spells. He also feels short of breath on ambulation. Review of Systems Review of Systems: All systems reviewed & are unremarkable except as noted in Subjective Physical Exam Physical Exam: General Appearance:Obese, no apparent distress Head: normocephalic, Atraumatic Eyes: normal inspection, EOMI Neck: supple, Trachea midline Respiratory/Chest: Bilateral crackles at base Cardiovascular: S1, S2, No murmur, + Pacer on L side Abdomen/GI:Soft, Non tender, Bowel sounds present Extremities/Musculoskeletal 1+ pitting edema: Neurologic/Psych:AAOX3, grossly no focal neurological deficits, Normal Mood Skin: normal color, warm Results & Data Results & Data ([facility]) Vital Signs (Past 12 Hours) Vital Signs Temp Pulse Pulse Resp BP Pulse Ox O2 Del Method 01/29/22 15:37 61 15 94 Room Air 01/29/22 15:23 36.6 C 69 20 122/61 90 Room Air 01/29/22 14:19 82 01/29/22 06:00 62 01/29/22 11:31 36.7 C 85 18 126/75 90 Room Air 01/29/22 10:44 73 14 93 Room Air 01/29/22 10:42 Room Air 01/29/22 08:26 36.7 C 79 18 123/70 90 Room Air 01/29/22 07:10 87 20 89 L Room Air FiO2 01/29/22 15:37 21 01/29/22 15:23 01/29/22 14:19 01/29/22 06:00 01/29/22 11:31 01/29/22 10:44 21 01/29/22 10:42 01/29/22 08:26 01/29/22 07:10 Laboratory Results Laboratory Results WBC 25.09 K/ul (4.8-10.8) H D 01/29/22 08:30 RBC 4.39 M/uL (4.63-6.08) L 01/29/22 08:30 Hgb 14.1 g/dl (14.0-18.0) 01/29/22 08:30 Hct 41.1 % (40.1-51.0) 01/29/22 08:30 MCV 93.6 fL (80.0-100.0) 01/29/22 08:30 MCH 32.1 pg (25.0-34.0) 01/29/22 08:30 MCHC 34.3 g/dL (32.0-36.0) 01/29/22 08:30 RDW Std Deviation 47.7 fL (36.4-46.3) H 01/29/22 08:30 RDW Coeff of Bette 14.1 % (11.5-14.5) 01/29/22 08:30 Plt Count 139 K/uL (130-400) 01/29/22 08:30 MPV 10.4 fL (9.4-12.4) 01/29/22 08:30 Immature Gran % (Auto) 0.6 % 01/29/22 08:30 Neut % (Auto) 90.7 % 01/29/22 08:30 Lymph % (Auto) 6.5 % 01/29/22 08:30 Dale % (Auto) 2.0 % 01/29/22 08:30 Eos % (Auto) 0.0 % 01/29/22 08:30 Baso % (Auto) 0.2 % 01/29/22 08:30 Neut # (Auto) 22.78 K/uL (1.4-6.5) H 01/29/22 08:30 Lymph # (Auto) 1.62 K/uL (1.2-3.4) 01/29/22 08:30 Dale # (Auto) 0.50 K/uL (0.24-0.82) 01/29/22 08:30 Eos # (Auto) 0.00 K/uL (0-0.50) 01/29/22 08:30 Baso # (Auto) 0.04 K/uL (0-0.2) 01/29/22 08:30 Immature Gran # (Auto) 0.15 K/uL (0.00-0.02) H 01/29/22 08:30 D-Dimer 200 ug/L FEU (0-500) 01/28/22 09:25 VBG pH 7.42 (7.36-7.41) H 01/28/22 09:25 VBG pCO2 41 mmHg (38-50) 01/28/22 09:25 VBG pO2 65 mmHg 01/28/22 09:25 VBG HCO3 27 mmol/L 01/28/22 09:25 VBG O2 Saturation 94.1 % 01/28/22 09:25 VBG Base Excess 1.9 mEq/L 01/28/22 09:25 Sodium 136 mmol/L (136-145) 01/29/22 08:30 Potassium 4.8 mmol/L (3.5-5.1) 01/29/22 08:30 Chloride 101 mmol/L (98-107) 01/29/22 08:30 Carbon Dioxide 25 mmol/L (21-32) 01/29/22 08:30 Anion Gap 10 (3-11) 01/29/22 08:30 BUN 26 mg/dl (6-23) H 01/29/22 08:30 Creatinine 1.24 mg/dl (0.6-1.4) D 01/29/22 08:30 Est Cr Clr Drug Dosing 74.7 ml/min 01/29/22 08:30 Est GFR ( Amer) 69.8 ml/min 01/29/22 08:30 Est GFR (Non-Af Amer) 60.2 ml/min 01/29/22 08:30 BUN/Creatinine Ratio 21.0 (10-20) H 01/29/22 08:30 Glucose 167 mg/dl (70-99(Fasting)) H 01/29/22 08:30 Estimat Average Glucose 131 mg/dl 01/29/22 08:30 Hemoglobin A1c 6.2 % (4.5-5.6) H 01/29/22 08:30 Calcium 9.3 mg/dl (8.5-10.1) 01/29/22 08:30 Magnesium 1.7 mg/dl (1.7-2.4) 01/29/22 08:30 Total Bilirubin 0.7 mg/dl (0.2-1.0) 01/28/22 09:25 AST 21 U/L (13-39) 01/28/22 09:25 ALT 23 U/L (7-52) 01/28/22 09:25 Alkaline Phosphatase 99 U/L (34-104) 01/28/22 09:25 Troponin I High Sens 4.0 pg/ml (0-20) 01/28/22 09:25 B-Natriuretic Peptide 78 pg/ml (0-100) 01/29/22 10:54 Total Protein 6.8 gm/dl (6.0-8.3) 01/28/22 09:25 Albumin 4.0 gm/dl (3.4-5.0) 01/28/22 09:25 Globulin 2.8 gm/dl (2.5-4.0) 01/28/22 09:25 Albumin/Globulin Ratio 1.4 (0.9-2) 01/28/22 09:25 Lipase 19 U/L (11-82) 01/28/22 09:25 SARS-CoV-2 (PCR) NEGATIVE (Negative) 01/28/22 09:30 Influenza Type A (PCR) Negative (Neg) 01/28/22 09:30 Influenza Type B (PCR) Negative (Neg) 01/28/22 09:30 RSV (RT-PCR) Negative (Neg) 01/28/22 09:30 Impressions Chest X-Ray 01/28/22 09:15 XR chest 1V portable HISTORY: Atypical Chest Pain COMPARISON: Chest 03/20/2020. FINDINGS: No pneumothorax. No pleural effusions. The cardiac silhouette remains mildly enlarged. There is left-sided dual-chamber pacemaker. There is mild central pulmonary vascular congestion without overt edema. No new focal lung consolidations identified to suggest pneumonia. IMPRESSION: Mild cardiomegaly with mild central pulmonary vascular congestion without overt edema. ACT 112: Negative or not required by law. Electronically signed by: Franky Rodgers M.D. 01/28/2022 9:29 AM
[2022-01-29] MEDS: ATORVASTATIN 40 MG TAB PO SCH (20:07)
[2022-01-29] MEDS: FAMOTIDINE 20 MG TAB PO SCH (20:10)
[2022-01-29] MEDS ORDERED: FLUTICASONE/VILANTEROL 200/25MCG 14 PUFFS/INHALER INH SCH (21:00)
[2022-01-30] MEDS: guaiFENesin/DEXTROM SYRUP 100MG/10MG 5ML UDC PO SCH ×2 (05:03→11:51)
[2022-01-30] MEDS: ALBUT/IPRATROP 3MG/0.5MG NEB 3 ML VIAL NEB SCH ×2 (07:13→10:35)
[2022-01-30] MEDS: EZETIMIBE 10 MG TABLET PO SCH (08:07)
[2022-01-30] MEDS: FLUTICASONE PROPIONATE NA SPR 16 GM BTL SCH (08:07)
[2022-01-30] MEDS: methylPREDNISolone 40 MG in SYRINGE 0 ML IV SCH (08:07)
[2022-01-30] MEDS: PANTOprazole 40 MG TAB PO SCH (08:07)
[2022-01-30] MEDS: ASPIRIN 81 MG ECTAB PO SCH (08:07)
[2022-01-30] MEDS: LORATADINE 10 MG TAB PO SCH (08:07)
[2022-01-30] MEDS: CYANOCOBALAMIN (B-12) 500 MCG TABLET PO SCH (08:07)
[2022-01-30] MEDS: allopurinoL 300 MG TAB PO SCH (08:07)
[2022-01-30] MEDS: DOXYCYCLINE HYCLATE 100 MG CAP PO SCH (08:07)
[2022-01-30] MEDS: ENOXAPARIN INJ 40 MG/0.4 ML SYR SQ SCH (08:08)
[2022-01-30 09:47] LABS: Hemoglobin 14.7 g/dl (14.0-18.0); Mean Corpuscular Hgb Conc 33.4 g/dL (32.0-36.0); Mean Corpuscular Volume 95.7 fL (80.0-100.0); Mean Platelet Volume 10.3 fL (9.4-12.4); Platelet Count 157 K/uL (130-400); RDW Coefficient of Variation 14.4 % (11.5-14.5); RDW Standard Deviation 49.7 fL (36.4-46.3)
[2022-01-30 10:16] LABS: Basophils # (auto) 0.04 K/uL (0-0.2); Basophils % (auto) 0.1 %; Immature Granulocytes # (auto) 0.29 K/uL (0.00-0.02); Immature Granulocytes % (auto) 1.1 %; Lymphocytes # (auto) 1.42 K/uL (1.2-3.4); Lymphocytes % (auto) 5.2 %; Monocytes # (auto) 0.94 K/uL (0.24-0.82); Monocytes % (auto) 3.4 %; Neutrophils # (auto) 24.61 K/uL (1.4-6.5); Neutrophils % (auto) 90.2 %
[2022-01-30 10:23] LABS: BUN Creatinine Ratio 27.6 (10-20); Calcium 9.4 mg/dl (8.5-10.1); Creatinine Clr Calc Pharmacy 79.1 ml/min; Est GFR (African American) 75.6 ml/min; Est GFR (Non-African American) 65.3 ml/min; Magnesium 1.9 mg/dl (1.7-2.4); Potassium 4.6 mmol/L (3.5-5.1)
--- NOTE | 2022-02-03 13:25 | Discharge Summary ---
Date of Service February 03, 2022 Admission HPI Per Admitting Provider This is a 66-year-old male who has a significant past medical history of CAD with history of anterior CT and LAD stent placement in 2018, SSS status post PPM, HTN, HLD, hypersensitivity pneumonitis, chronic cough, moderate asthma, restrictive lung disease in the setting of morbid obesity and PRECIOUS, gout and chronic rhinitis who presents to ED secondary to shortness of breath /cough x3 weeks. He states approx 3 weeks ago he developed a cough. The cough has been persistently getting worse as well as SOB. He has been using his home nebulizer w/o relief. He also started a rescue kit approx 1 week ago with cefuroxime and prednisone. He believes this flare may be due to pollen and heat. He states many yrs ago he was dx with hypersensitivity pneumonitis due to pigeon droppings in work place. He was dx by allergy/immunology Dr. Flores. He feels like his oral steroids/antibiotic are not helping. His cough is dry. Occasionally coughs up red mucus. He has tried hot showers w/o relief. He complains of sweats at night but no documented fevers. He denies chills, dizziness, lightheaded, chest pain, n/v/d, change in bowel or urinary habits. His sx feel worse in the morning. Also if he is resting he feels okay, but as soon as he starts moving around he feels SOB. SOB most with exertion. No known sick contacts. Of significance patient remained hemodynamically stable in ED. He was not hypoxic but oxygen saturatio ns were in the low 90s at approximately 92%. His CBC and CMP was generally unremarkable. D-dimer was negative and VBG with mild elevation in pH at 7.42. His SARS-CoV-2 and influenza panel was negative. Chest x-ray revealed mild cardiomegaly without overt edema. Mild central pulmonary vascular congestion noted. He denies smoking and only uses occasional alcohol. Admission Exam Per Admitting Provider This is a 66-year-old male who has a significant past medical history of CAD with history of anterior CT and LAD stent placement in 2018, SSS status post PPM, HTN, HLD, hypersensitivity pneumonitis, chronic cough, moderate asthma, restrictive lung disease in the setting of morbid obesity and PRECIOUS, gout and chronic rhinitis who presents to ED secondary to shortness of breath /cough x3 weeks. He states approx 3 weeks ago he developed a cough. The cough has been persistently getting worse as well as SOB. He has been using his home nebulizer w/o relief. He also started a rescue kit approx 1 week ago with cefuroxime and prednisone. He believes this flare may be due to pollen and heat. He states many yrs ago he was dx with hypersensitivity pneumonitis due to pigeon droppings in work place. He was dx by allergy/immunology Dr. Flores. He feels like his oral steroids/antibiotic are not helping. His cough is dry. Occasionally coughs up red mucus. He has tried hot showers w/o relief. He complains of sweats at night but no documented fevers. He denies chills, dizziness, lightheaded, chest pain, n/v/d, change in bowel or urinary habits. His sx feel worse in the morning. Also if he is resting he feels okay, but as soon as he starts moving around he feels SOB. SOB most with exertion. No known sick contacts. Of significance patient remained hemodynamically stable in ED. He was not hypoxic but oxygen saturations were in the low 90s at approximately 92%. His CBC and CMP was generally unremarkable. D-dimer was negative and VBG with mild elevation in pH at 7.42. His SARS-CoV-2 and influenza panel was negative. Chest x-ray revealed mild cardiomegaly without overt edema. Mild central pulmonary vascular chad estion noted. Principal Diagnosis Moderate persistent asthma with Asthma Exacerbation Post-Nasal Drip Discharge Exam General Appearance:Obese, no apparent distress Head: normocephalic, Atraumatic Eyes: normal inspection, EOMI Neck: supple, Trachea midline Respiratory/Chest: Bilateral crackles at base Cardiovascular: S1, S2, No murmur, + Pacer on L side Abdomen/GI:Soft, Non tender, Bowel sounds present Extremities/Musculoskeletal 1+ pitting edema: Neurologic/Psych:AAOX3, grossly no focal neurological deficits, Normal Mood Skin: normal color, warm Discharge Data Allergies Allergy/AdvReac Type Severity Reaction Status Date / Time Sulfa (Sulfonamide Allergy Unknown Hives Verified 08/23/21 10:17 Antibiotics) bee venom protein (honey bee) Allergy Nausea Verified 08/23/21 10:17 Consultations 01/28/22 11:24 ED Decision to Admit Stat Hospital Course (1) Asthma with acute exacerbation: (2) Hypersensitivity pneumonitis: (3) CAD (coronary artery disease): (4) HTN (hypertension): (5) Morbid obesity: (6) Presence of permanent cardiac pacemaker: (7) Obstructive sleep apnea: (8) Restrictive lung disease: Plan This is a 66-year-old male who has a significant past medical history of CAD with history of anterior CT and LAD stent placement in 2018, SSS status post PPM, HTN, HLD, hypersensitivity pneumonitis, chronic cough, moderate asthma, restrictive lung disease in the setting of morbid obesity and PRECIOUS, gout and chronic rhinitis who presents to ED secondary to shortness of breath /cough x3 weeks. The cough was mostly at night and in the morning. He was started on steroids, nebulization, flonase, cough syrup and antihistamines. Echo was done which showed EF of 60 to 65% with grade 1 diastolic dysfunction. Patient was also given 1 dose of Lasix during the hospitalization. Patient's cough improved over the course of the hospitalization. His WBC had trended up to 25 which is likely related to with steroids use. He was afebrile throughout. Patient was discharged home on oral steroid, Flonase and cough suppression. He was asked to follow-up with the primary care doctor and repeat CBC. Patient's lisinopril was changed to losartan given his cough Total Time Total Time Spent Total Time Spent (In Minutes): 35 Total Time Includes: Examination of the Patient, Discharge Planning, Medication Reconciliation, Communication With Other Providers and Other Discharge Plan Discharge Items Patient Disposition: Home - Self-Care Reason For Visit: ASTHMA EXACERBATION Discharge Diagnosis: Asthma Excerebration Post-nasal drip Activity: Resume your previous activity Non-emergency contact: Primary Care Provider Call non-emergency contact if: you have any medication questions Follow-up/Referrals: Renetta Morales DO [Primary Care Provider] - (Date & Time 02/02/2022 8:40 AM Provider Wale Charles DO Department [facility] [address], [place] ) Diet: Carb Consistent or DM2 Addtl Attending Provider Instructions: Following changes have been made to her medication regimen. 1) Stop taking lisinopril as it can contribute to cough. A prescription for losartan 25 mg is sent to your pharmacy. Please check your blood pressure twice a day for next week. Start losartan if your blood pressure is consistently above 130/80 in the next few days. 2) A prescription for Flonase has been sent to the pharmacy. Please continue to take loratadine/Claritin once a day. It will help with the postnasal drip. 3) A prescription for cough syrup was sent to your pharmacy. Please take it as needed every 6 hours for cough. 4) A prescription of doxycycline 100 mg twice daily for 5 days is sent to the pharmacy. Your WBC count was found to be high on your blood work done during the h ospitalization. This is most likely due to the effects of steroids. There was no fever or other symptoms suggestive of an infection. Please have blood work done( CBC and BMP) with your primary care doctor in 1 week to see the resolution of the WBC count. Pending Studies at Discharge: No Stand-Alone Forms: My [facility] [employer], Smoking Cessation Medications and DC Order Prescriptions: New doxycycline hyclate 100 mg Capsule 100 mg PO BID 5 Days Qty: 10 0RF losartan 25 mg Tablet 25 mg PO QAM 30 Days Qty: 30 0RF fluticasone propionate 50 mcg/actuation [place],Suspension 1 spray NA DAILY Qty: 16 0RF dextromethorphan-guaifenesin 10-100 mg/5 mL Syrup 5 ml PO Q6H PRN (Reason: cough) Qty: 500 0RF Continued cefuroxime axetil 500 mg tablet 500 mg PO BID PRN (Reason: Shortness Of Breath) Qty: 20 1RF Rx Instructions: rescue kit albuterol sulfate [Ventolin HFA] 90 mcg/actuation HFA aerosol inhaler 2 puff INHALATION .COMPLEX PRN (Reason: Shortness Of Breath) Qty: 8.5 3RF Rx Instructions: 2 puffs inhalation EVERY 4-6 HOURS NEEDED PRN; albuterol sulfate 1.25 mg/3 mL solution for nebulization 1.25 mg inhalation QID PRN (Reason: shortness of breath or wheezing) Qty: 90 3RF Atrovent HFA 17 mcg/actuation HFA aerosol inhaler 2 puff INHALATION .BID PRN (Reason: Shortness Of Breath) fluticasone propion-salmeterol [Advair Diskus] 250-50 mcg/dose blister with device 1 inh INHALATION BID Qty: 3 3RF atorvastatin 80 mg Tablet 80 mg PO HS cyanocobalamin (vitamin B-12) [Vitamin B-12] 1,000 mcg Tablet 1,000 mcg PO DAILY aspirin 81 mg Tablet,Delayed Release (Dr/Ec) 81 mg PO DAILY nitroglycerin [Nitrostat] 0.4 mg Tablet, Sublingual 0.4 mg Sublingual DIRECTED PRN (Reason: Chest Pain) allopurinol 300 mg Tablet 300 mg PO DAILY epinephrine 0.3 mg/0.3 mL Auto-Injector 0.3 mg IM DIRECTED PRN (Reason: unknown) famotidine 20 mg Tablet 20 mg HS ezetimibe [Zetia] 10 mg Tablet 10 mg PO DAILY loratadine 10 mg Tablet 10 mg PO DAILY prednisone 10 mg Tablet 10 mg PO UD PRN (Reason: rescue kit) Rx Instructions: as needed rescue kit 5 tabs x 4 days, 4 tabs x 4 days, 3 tabs x 4 days, 2 tabs x 4 days, 1 tab x 4 days Discontinued lisinopril 5 mg Tablet 5 mg PO DAILY pantoprazole 20 mg Tablet,Delayed Release (Dr/Ec) 20 mg PO DAILY Discharge Orders: Discharge Order (Routine); Ordered 01/30/22 Ordered By: Isidro Coulter/Other Patient Handouts: Prediabetes, 5 Steps for Eating Healthier Admission Data Admit Date/Time: 01/29/22 15:46 Attending Provider: Isidro Mahoney Admit Provider: Jose Hanson Primary Care Provider: Renetta Morales Other Providers: Jose Hanson Other Interventions: Discharge Summary Assessment (RN) Last Done: 01/30/22 11:55
== END 2022-01-30 12:49 | disposition home or self-care (01) | DRG 202 ==
LOC: ED 08:54 → EDINP 08:54 → SUATTDRO 11:36 → 2W 13:40